=== PATIENT | female | born 2005 | race Caucasian/White ===

== ENCOUNTER 2025-03-05 16:08 | Emergency (ER) | payer SELFPAY ==
[2025-03-05 16:11] VITALS: BP 138/68; PULSE 102; RESP 18; TEMP 36.7; O2SAT 99; BMI 24.0
--- NOTE | 2025-03-05 16:41 | ED_ITS ---
<Statement entered by Aaron Gonzalez MD - 03/05/25 20:41> I was consulted by the CLEVE, and we discussed the complexity of the problems being addressed. I approve the treatment and management plan for this patient's care in the emergency department, thus performing a substantive portion of the medical decision making. Aaron Gonzalez MD Discharge Plan Disposition Patient Disposition: Home, Self-Care Condition: Good Prescriptions Prescriptions: New ondansetron 4 mg tablet,disintegrating 4 mg PO Q6H PRN (Reason: nausea and vomiting) Qty: 10 0RF Referrals Follow up/Referrals: Lashon Armas DO [Staff Physician, [facility]] - See instructions Provider,Referral, [Primary Care Provider, Medical] - See instructions Activity Restrictions/Add. Instructions Additional Instructions/Restrictions: Please return to the emergency department within the next 24 to 48 hours if your symptoms fail to improve. Please utilize ibuprofen and Tylenol as well as antinausea medicine as needed for symptom relief. Please follow-up with your PCP or women health provider in the upcoming days/weeks. Clinical Impressions Clinical Impression: Abdominal pain, Rupture of ovarian cyst, Dysmenorrhea Instructions Patient Instructions: DI for Ovarian Cyst, DI for Dysmenorrhea, DI for Acute Abdominal Pain Print Language Print Language: Samoan Discharge ED Provider: Aaron Gonzalez General Adult HPI General Chief complaint: Abdominal Pain Stated complaint: painfull cramps, throwing up Time Seen by Provider: 03/05/25 16:41 Mode of Arrival: Wheelchair Source of Information: Patient Description of Symptoms (Recalled from ER Triage Doc. by RN): Patient reports starting her period this morning and then all of the sudden she started to have extreme abdomen pain. States she has a history of ovarian cysts rupturing in the past and it kind of feels like that now. States she took ibuprofen approx 2 hours ago with no relief and has started vomiting. History of Present Illness HPI narrative: 19-year-old female presents emerged brought accompanied by her mother for cramps , that started this morning, with associated nausea and vomiting, patient states that this morning she did start her menstrual period , she endorses irregular menstrual cycles, endorses cramping with menstrual cycles, also endorses previous history of ovarian cyst rupture , and she states this feels similar, attempted to utilize ibuprofen, with little to no relief. Patient denies any fever or chills, does endorse chest pain , only when she has her cramps, denies any constipation, admits to diarrhea today, denies any dysuria, urinary frequency, or other urinary type symptomatology, denies any overt shortness of breath, no cough congestion, no recent sick contacts or illness. Patient denies any alcohol tobacco or drug use, patient has no other real relevant past medical history takes no medications daily at home. Please note that above description of symptoms, in this electronic medical record under categorization of recalled from ER triage doctor by RN are reflective of an initial nursing assessment, however, is not reflective of my full history and physical exam that was personally taken and clarified. Consequentially, this preceding description of symptoms, which may include the patient's categorized chief complaint in the EMR, do not reflect my personal clinical impression, and the ultimate description of history of present illness and patient stated complaints should be deferred to this section of the note. Unless stated otherwise or congruent with this section of the note, additional signs, symptoms, or incongruence should be interpreted as inaccurate with my clinical impression. Onset (ago): hour(s) Related Data Previous Rx's ?Medication ?Instructions ?Recorded ondansetron 4 mg disintegrating 4 mg PO Q6H PRN nausea and 03/05/25 tablet vomiting #10 tabs Allergies Allergy/AdvReac Type Severity Reaction Status Date / Time No Known Allergies Allergy Verified 03/05/25 16:16 [facility] Disclaimer: The information contained in this section may have been updated after the patient was seen, as this information can be updated by other users. Social History Smoking Status: Never smoker alcohol intake: never current occupational status: other Travel in the last 8 weeks?: None ROS Obtained: Yes All systems reviewed & no additional complaints except as documented Physical Exam General General appearance: alert, in no apparent distress and anxious Comment: Anxious and quite tearful appearing on exam in obvious pain Head Head exam: atraumatic and normocephalic Eye Eye exam: Present PERRL and EOMI ENT ENT exam: Present mucous membranes moist Neck Neck exam: Present normal inspection Chest Chest inspection: Present normal inspection and symmetric chest wall rise Respiratory Respiratory exam: Present normal lung sounds bilaterally; Absent respiratory distress Cardiovascular Cardiovascular exam: Present regular rate and normal rhythm Abdominal Exam Abdominal exam: Present soft and tenderness; Absent guarding, rebound or rigidity Abdominal tenderness: Present suprapubic and mild Extremities Exam Extremities exam: Present normal inspection Neurological Exam Neurological exam: Present alert and oriented X3 Psychiatric Psychiatric exam: Present normal affect Skin Skin exam: Present warm and dry Medical Decision Making Medical Records Medical records reviewed: Yes I reviewed the patient's medical records. Screening: Per USPSTF and CDC recommendations, given the prevalence of disease in our region, it is our hospital?s policy to screen for HIV and viral Hepatitis for all patients aged 18 and over and those with ongoing risk factors. Mando Inquiry Pt receiving controlled substance: No Mando was queried for this patient: No Vital Signs: 03/05/25 16:11 03/05/25 17:48 03/05/25 18:00 Temperature 98.0 F Temperature Source Oral Pulse Rate 83 78 Pulse Rate [Radial] 102 H Respiratory Rate 18 16 18 Blood Pressure 120/64 113/62 Blood Pressure [Right Arm] 138/68 Blood Pressure Mean 78 81 Blood Pressure Mean [Right Arm] 91 Blood Pressure Source [Right Arm] Automatic Cuff Blood Pressure Position [Right Arm] Sitting 02 Sat by Pulse Oximetry 99 97 98 Oxygen Delivery Method Room Air 03/05/25 18:30 Temperature Temperature Source Pulse Rate 84 Pulse Rate [Radial] Respiratory Rate Blood Pressure 122/68 Blood Pressure [Right Arm] Blood Pressure Mean Blood Pressure Mean [Right Arm] Blood Pressure Source [Right Arm] Blood Pressure Position [Right Arm] 02 Sat by Pulse Oximetry 98 Oxygen Delivery Method Room Air Lab Data Lab results reviewed: Yes I reviewed the patient's lab results. Lab Results 03/05/25 16:40: WBC 17.7 H, RBC 4.27, Hgb 13.0, Hct 39.1, MCV 91.6, MCH 30.4, MCHC 33.2, RDW 12.8, Plt Count 246, MPV 13.1 H, Neut % (Auto) 88.1 H, Lymph % (Auto) 6.3 L, Sutton % (Auto) 4.6, Eos % (Auto) 0.2, Baso % (Auto) 0.4, Neut # (Auto) 15.6 H, Lymph # (Auto) 1.1, Sutton # (Auto) 0.8, Eos # (Auto) 0.0, Baso # (Auto) 0.1, Sodium 138, Potassium 3.7, Chloride 105, Carbon Dioxide 23, Anion Gap 13.7, BUN 8, Creatinine 0.50 L, Estimated Creat Clear 162, Estimated GFR 156, Est GFR ( Amer) 188, Glucose 125 H, Calcium 9.4, Total Bilirubin 0.2, AST 29, ALT 23, Alkaline Phosphatase 85, Total Protein 8.4 H, Albumin 4.5, Globulin 3.9 H, Albumin/Globulin Ratio 1.2, Lipase 52, Serum HCG, Qual Negative 03/05/25 18:05: Lactate 0.9, Urine Color Yellow, Urine Appearance Clear, Urine pH 6.0, Ur Specific Ava 1.025, Urine Protein Negative, Urine Glucose (UA) Negative, Urine Ketones 2+, Urine Blood 3+ A, Urine Nitrate Negative, Urine Bilirubin Negative, Urine Urobilinogen 0.2, Ur Leukocyte Esterase Negative, Urine RBC 5-10, Urine WBC None, Ur Squamous Epith Cells Occasional, Urine Bacteria Trace 03/05/25 16:40 03/05/25 16:40 Orders (Tests/Meds): ED MEDICATIONS Generic Name Dose Route Start Last Admin Trade Name Freq PRN Reason Stop Dose Admin Sodium Chloride 10 ml 03/05/25 18:44 03/05/25 18:44 Sodium Chloride 0.9% 10ml Syr (Rad Only) IV 04/04/25 18:43 10 ml NEEDED PRN Administration Maintain IV Site Discontinued Medications Generic Name Dose Route Start Last Admin Trade Name Freq PRN Reason Stop Dose Admin Iopamidol 75 ml 03/05/25 18:44 03/05/25 18:44 Iopamidol-370 (76%);100ml Bottle IV 03/05/25 18:45 75 ml ONCE ONE Administration Ketorolac Tromethamine 15 mg 03/05/25 16:47 03/05/25 17:43 Ketorolac 15mg/Ml Vial IV 03/05/25 16:48 15 mg ONCE ONE Administration Ondansetron HCl 4 mg 03/05/25 16:46 03/05/25 17:42 Ondansetron 4mg/2ml Vial IV 03/05/25 16:47 4 mg ONCE ONE Administration ORDERS Category Date Time Status CT abdomen pelvis w con Stat Cat Scan 03/05/25 16:45 Completed Complete Blood Count Auto Diff Stat Lab 03/05/25 16:40 Completed Comprehensive Metabolic Panel Stat Lab 03/05/25 16:40 Completed Lactic Acid Stat Lab 03/05/25 18:05 Completed Lipase Stat Lab 03/05/25 16:40 Completed Serum [HCG Qualitative, Serum] Stat Lab 03/05/25 16:40 Completed Urinalysis and Microscopic Stat Lab 03/05/25 18:05 Completed US Pelvic Stat Ultrasound 03/05/25 16:45 Completed Medical Decision Narrative: 19-year-old female presents the emergency department with lower abdominal pain, vaginal bleeding, N/V, started menstrual cycle today, differential diagnosis to include but not limited to acute UTI, appendicitis, diverticulitis, colitis, nephrolithiasis, ureterolithiasis, primary dysmenorrhea, leiomyoma, ovarian cyst rupture, ovarian torsion, physiologic , spontaneous among others. Discussed this patient's case with the attending physician Will obtain basic laboratory studies, EKG, CT and pelvis with contrast, transvaginal ultrasound, lactic acid level lipase level UA, urine hCG qualitative, 15 mg IV Toradol and 4 mg of Zofran and nausea. CBC noted for mild leukocytosis 17.7, could be reactive. CMP unremarkable Lipase within normal limits hCG qualitative negative. I was called to the bedside by patient and family, patient is feeling somewhat better after Toradol and Zofran administration, patient was curious about the reasoning behind obtaining the CT scan , discussed all risk and benefits obtaining advanced imaging, to rule out life-threatening/conditions, patient does still have some right lower quadrant tenderness, discussed all risk and benefits of not obtaining CT scan with the patient at bedside at the bedside, due to cost , patient related proceed with CT abdomen pelvis with contrast for further evaluation of her lower abdominal pain. Lactic acid level within normal limits Urinalysis noted for 3+ hematuria 2+ ketonuria, negative nitrites negative leukocyte esterase. I reviewed the patient's transabdominal ultrasound along the corresponding radiologic report, no evidence of ovarian torsion no uterine masses, small adnexal cyst noted bilaterally, fluid is noted in the right adnexa and cul-de-sac, patient was unable to tolerate transvaginal ultrasound according to research instrumentation technician, thus obtain pelvic/transabdominal ultrasound. 5-10 RBCs, no WBCs occasional squamous cells and trace bacteria is noted on microscopic analysis of the patient's urine. I reviewed the patient's CT abdomen pelvis with contrast along the corresponding radiologic report, small amount of fluid in the cul-de-sac and right adnexa similar to pelvic ultrasound performed on same day no ovarian cyst appreciated, no close evidence of an appendicitis identified, the appendix is not optimally visualized but appears retrocecal and directed superiorly if further evaluation appendix is felt warranted clinically a follow-up examination with IV and oral contrast could be performed to better visualize the appendix, small reactive appearing mesenteric lymph nodes no bulky adenopathy other findings as above. Examination of the patient, at approximately 8:15 PM, patient is resting comfortably bed, her symptomatology is improved. Patient is cleared to be discharged home to self-care, patient given very strict ED return precautions, and discussed that appendix was not yet fully visualized, patient voiced understanding and in agreement with current treatment plan/discharge plan, I will send in some 4 mg p.o. sublingual Zofran as needed for nausea vomiting the patient's pharmacy, I recommend anti-inflammatory medication such as Tylenol and ibuprofen. Most likely patient had ovarian cyst rupture versus primary dysmenorrhea as the cause of her symptomatology as patient's menstrual cycle started today, does have history of somewhat irregular menstrual cycles as well as pretty severe dysmenorrhea. Both patient and mother at the bedside voiced understanding. Will follow-up PCP in the upcoming days. Critical Care Critical Care Time Critical Care Time: No
--- NOTE | 2025-03-05 16:45 | US_ITS ---
PROCEDURE INFORMATION: Exam: US Pelvis Complete, Transabdominal and US Duplex Artery and Vein, Ovaries, Complete Exam date and time: 03/05/2025 5:00 PM Age: 19 years old Clinical indication: Pelvic pain; Additional info: Rule out torsion history of ovarian cyst TECHNIQUE: Imaging protocol: Real-time transabdominal pelvic ultrasound (non-obstetric) with image documentation. Real-time duplex ultrasound scan of the arterial and venous flow of the ovaries with B-mode, color Doppler flow and spectral waveform analysis. Complete pelvic ultrasound. Complete duplex. Duplex exam was performed to evaluate for torsion and other vascular conditions. Total images: 544 COMPARISON: No relevant prior studies available. FINDINGS: Uterus: Uterus measures 7.1 x 3.5 x 5.7 cm. Endometrium measures 4 mm. No uterine masses. Right ovary/adnexa: Right ovary measures 3.4 x 2.3 x 3.4 cm. Blood flow is demonstrated to the right ovary. Fluid is noted within the right adnexa and cul-de-sac. Left ovary/adnexa: Left ovary measures 3.3 x 1.4 x 2.9 cm. Blood flow is demonstrated to the left ovary. Other findings: Small adnexal cysts noted bilaterally. IMPRESSION: 1. No evidence of ovarian torsion. 2. No uterine masses. 3. Small adnexal cysts noted bilaterally. 4. Fluid is noted within the right adnexa and cul-de-sac.
--- NOTE | 2025-03-05 16:45 | CT_ITS ---
PROCEDURE INFORMATION: Exam: CT Abdomen And Pelvis With Contrast Exam date and time: 03/05/2025 6:43 PM Age: 19 years old Clinical indication: Abdominal pain; Additional info: Lower abdominal pain, nausea vomiting TECHNIQUE: Imaging protocol: Computed tomography of the abdomen and pelvis with contrast. Radiation optimization: All CT scans at this facility use at least one of these dose optimization techniques: automated exposure control; mA and/or kV adjustment per patient size (includes targeted exams where dose is matched to clinical indication); or iterative reconstruction. Contrast material: ISOVUE; Contrast volume: 75 ml; Contrast route: IV; COMPARISON: US PELVIC 03/05/2025 5:00 PM FINDINGS: Liver: Normal. No mass. Gallbladder and biliary ducts: Normal. No calcified stones. No ductal dilation. Pancreas: Normal. No ductal dilation. Spleen: Normal. No splenomegaly. Adrenal glands: Normal. No mass. Kidneys and ureters: Normal. No hydronephrosis. Stomach and bowel: Unremarkable. Appendix: The appendix is not optimally visualized. What is likely the appendix is retrocecal and directed superiorly. No definite evidence of acute inflammation in the pericecal region is appreciated. Intraperitoneal space: Unremarkable. No free air. No significant fluid collection. Vasculature: Unremarkable. No abdominal aortic aneurysm. Lymph nodes: Small reactive appearing mesenteric lymph nodes that are most prominent in the right lower quadrant. Urinary bladder: Unremarkable as visualized. Reproductive: Small amount of fluid within the cul de sac and right adnexa similar to the pelvic ultrasound performed on the same date. Normal sized anteverted uterus. Normal-sized ovaries. No dominant ovarian cyst appreciated. Bones/joints: Unremarkable. No acute fracture. Soft tissues: Unremarkable. IMPRESSION: 1. Small amount of fluid in the cul-de-sac and right adnexa similar to the pelvic ultrasound performed on the same date. No ovarian cyst appreciated. 2. No conclusive evidence of appendicitis identified. The appendix is not optimally visualized but appears to be retrocecal and directed superiorly. If further evaluation of the appendix is felt warranted clinically a follow-up examination with IV and oral contrast could be performed to better visualize the appendix. 3. Small reactive appearing mesenteric lymph nodes. No bulky adenopathy. 4. Other findings above.
[2025-03-05 16:56] LABS: Hematocrit 39.1 % (37.0-47.0); Hemoglobin 13.0 g/dL (12.2-16.2); Immature Granulocytes % 0.4 %; Mean Corpuscular HGB Conc 33.2 g/dL (31.8-35.4); Mean Corpuscular Hemoglobin 30.4 pg (27.0-31.2); Mean Corpuscular Volume 91.6 fl (81-99); Nucleated Red Blood Cells % 0 %; Platelet Count 246 K/mm3 (142-424); Red Blood Count 4.27 M/mm3 (4.20-5.40); Red Cell Distribution Width-SD 42.5 fL; White Blood Count 17.7 K/mm3 (4.8-10.8)
--- NOTE | 2025-03-05 16:59 | ECG_ITS ---
APPROVED REPORT Exam: Resting ECG HR:66 bpm ECG Measurements Heart Rate 66 AXES PA 146 P 77 QRSd 94 QRS 84 QT 384 T 66 QTc 397 Conclusion SINUS RHYTHM NORMAL ECG UNCONFIRMED REPORT Electronically signed by : DEBORAH RICHEY, 03/06/2025 23:59:46
[2025-03-05 17:00] LABS: Albumin Level 4.5 g/dl (3.5-5.0); Chloride 105 mmol/L (98-107); Potassium 3.7 mmoL/L (3.5-5.1); Sodium 138 mmol/L (136-145)
[2025-03-05 17:03] LABS: Alanine Aminotransferase 23 U/L (12-78); Albumin/Globulin Ratio 1.2 (1.1-1.8); Alkaline Phosphatase 85 U/L (38-126); Anion Gap 13.7 mEq/L (5-15); Aspartate Amino Transferase 29 U/L (14-36); Bilirubin,Total 0.2 mg/dl (0.2-1.3); Blood Urea Nitrogen 8 mg/dl (7-17); Carbon Dioxide 23 mmol/L (22.0-30.0); Creatinine Clearance Estimated 162 mL/min (50-200); Creatinine,Serum 0.50 mg/dl (0.52-1.04); Estimated Glomerular Filt Rate 156 ml/min (>60); GFR (African American) 188 ML/MIN (>60); Globulin 3.9 g/dL (1.3-3.2); Lipase 52 U/L (23-300); Total Protein,Serum 8.4 g/dl (6.3-8.2)
[2025-03-05 17:04] LABS: Calcium 9.4 mg/dl (8.4-10.2); Glucose 125 mg/dl (74-100)
--- NOTE | 2025-03-05 17:06 | PC.NURSE ---
1704hrs- pt to US at this time
[2025-03-05] MEDS: ONDANSETRON 4MG/2ML VIAL 4 MG IV (17:42)
[2025-03-05] MEDS: KETOROLAC 15MG/ML VIAL 15 MG IV (17:43)
[2025-03-05 17:48] VITALS: BP 120/64; PULSE 83; RESP 16; O2SAT 97
[2025-03-05 18:00] VITALS: BP 113/62; PULSE 78; RESP 18; O2SAT 98
[2025-03-05 18:05] LABS: HCG Qualitative, Serum Negative (Negative)
[2025-03-05 18:17] LABS: Microscopic, Urine URINE MICROSCOPIC (MICROSCOPIC)
[2025-03-05 18:26] LABS: Bilirubin,Urine Negative (Negative); Color,Urine YELLOW (Yellow); Glucose,Urine (UA) Negative (Negative); Ketones,Urine 2+ (Negative); Leukocyte Esterase,Urine Negative (Negative); PH,Urine 6.0 (5.0-8.5); Protein,Urine Negative (Negative); Specific Gravity, Urine 1.025 (1.005-1.030); Urobilinogen,Urine 0.2 EU/dl (0.2)
[2025-03-05 18:30] VITALS: BP 122/68; PULSE 84; O2SAT 98
[2025-03-05] MEDS: IOPAMIDOL-370 (76%);100ML BOTTLE 75 ML IV (18:44)
[2025-03-05] MEDS: SODIUM CHLORIDE 0.9% 10ML SYR (RAD ONLY) 10 ML IV (18:44)
[2025-03-05 19:55] LABS: Bacteria,Urine Trace /lpf; Squamous Epithelial Cell,Urine Occasional #/hpf (0-5)
[2025-03-05 20:29] VITALS: BP 110/68; PULSE 68; RESP 18; TEMP 36.7; O2SAT 98
== END 2025-03-05 20:30 | disposition home or self-care (01) ==
PROVIDERS: Physician Assistant; Emergency Provider Student in an Organized Health Care Education/Training Program
DX: R10.30 Lower abdominal pain, unspecified (principal); R11.2 Nausea with vomiting, unspecified; N83.291 Other ovarian cyst, right side; N94.6 Dysmenorrhea, unspecified
CPT/HCPCS: 74177; 76856; 80053; 81001; 83605; 83690; 84703; 85025; 93005; 96374; 96375; 99285; J1885; J2405; Q9967